=== PATIENT | female | born 1975 | race Caucasian/White ===

== ENCOUNTER 2019-09-25 03:49 | Emergency (ER) | payer OTHER ==
[~2019-09-25] VITALS: Ht 160 cm; Wt 77.0 kg
[2019-09-25 05:17] VITALS: BP 123/77
== END 2019-09-25 05:17 | disposition home or self-care (01) ==
LOC: ER 03:49
DX: F10.180 Alcohol abuse with alcohol-induced anxiety disorder (principal); Y90.9 Presence of alcohol in blood, level not specified
CPT/HCPCS: 99282